=== PATIENT | female | born 1960 | race Caucasian/White ===

== ENCOUNTER → 2017-06-06 | Outpatient (CLI) | payer BC ==
[~2017-06-06] MED LIST: CEPH500 PO; ESTR.75; HORMONE CREAM; HYDACE5 PO; IBUP400; IBUP600 PO; KETO10 PO; LEVFLO500; LEVFLO500 PO; Norco 5-325 Ta1 EACH PO; ONDA4ODT PO; OXYB5ER PO; PHENA200 PO; Percocet 5-3251 EACH PO; Pyridium100 MG PO; ROFE12.5; [UNRECOGNIZED DRUG - REMARK]
== END | disposition home or self-care (01) ==
LOC: LAB 15:30
DX: R35.0 Frequency of micturition (principal)
CPT/HCPCS: 87077; 87086; 87186

== ENCOUNTER → 2019-01-08 | Outpatient (CLI) | payer BC | LOC: LAB SHORT 14:30 → LAB 14:30 | DX: N39.0 Urinary tract infection, site not specified (principal) | CPT/HCPCS: 87077; 87086; 87186 ==

== ENCOUNTER → 2019-03-31 | Outpatient (CLI) | payer BC ==
[~2019-03-31] MED LIST changes: +Invanz1 GM IV; +MUSCLE RELAXER; +ZYLOPRIM300 MG PO; +Zoloft100 MG PO
== END | disposition home or self-care (01) ==
LOC: LAB 13:30 → LAB SHORT 13:30
DX: N39.0 Urinary tract infection, site not specified (principal)
CPT/HCPCS: 87077; 87086; 87186

== ENCOUNTER 2019-04-04 20:06 | Emergency (ER) | payer BC ==
[~2019-04-04] VITALS: Ht 170.2 cm; Wt 106.6 kg
[~2019-04-04 20:06] MED LIST changes: -Invanz1 GM IV; -MUSCLE RELAXER; -ZYLOPRIM300 MG PO; -Zoloft100 MG PO
[2019-04-04] MEDS ORDERED: ZYLOPRIM300 MG PO (20:35)
[2019-04-04 21:50] LABS: Calcium, Ionized (POC) 1.16 mmol/L (1.10-1.46); Chloride (POC) 108 mmol/L (98-108); Creatinine (POC) 0.7 mg/dL (0.6-1.0); Glucose (ISTAT POC) 96 mg/dL (70-99); Potassium (POC) 3.9 mmol/L (3.5-5.5); Sodium (POC) 140 mmol/L (135-148); Total CO2 (POC) 25 mmol/L (21-32)
== END 2019-04-04 23:47 | disposition home or self-care (01) ==
LOC: ER 20:06
DX: R25.2 Cramp and spasm (principal); G47.30 Sleep apnea, unspecified; Z88.8 Allergy status to other drugs, medicaments and biological substances; Z91.048 Other nonmedicinal substance allergy status; Z87.442 Personal history of urinary calculi
CPT/HCPCS: 36415; 80047; 83735; 85014; 85379; 99283

== ENCOUNTER 2019-04-09 16:41 | Emergency (ER) | payer BC ==
[~2019-04-09] VITALS: Ht 170.2 cm; Wt 107.5 kg
[~2019-04-09 16:41] MED LIST changes: +ZYLOPRIM300 MG PO
[2019-04-09 17:32] LABS: Source, Urine Clean Catch
[2019-04-09 17:35] LABS: Bilirubin, Urine Neg (Neg); Blood, Urine Neg (Neg); Glucose Qualitative, Urine Neg (Neg); Ketones, Urine Neg (Neg); Leukocyte Esterase, Urine 3+ (Neg); Nitrite, Urine Neg (Neg); Protein, Urine Neg (Neg); Urobilinogen, Urine NORM (Normal)
[2019-04-09 17:37] LABS: Appearance, Urine Hazy (Clear); Color, Urine Yellow (P-Yellow)
[2019-04-09 17:49] LABS: Bacteria Mod /hpf; Red Blood Cells, Urine 0-2 /hpf (0-2); Squamous Epithelial Cells Mod /hpf (Few)
[2019-04-10] MEDS ORDERED: MUSCLE RELAXER (15:48)
[2019-04-10] MEDS ORDERED: Zoloft100 MG PO (15:48)
== END 2019-04-09 21:35 ==
LOC: ER 16:41
PROVIDERS: Emergency Medicine
DX: N39.0 Urinary tract infection, site not specified (principal); B96.89 Other specified bacterial agents as the cause of diseases classified elsewhere; G47.30 Sleep apnea, unspecified; Z88.8 Allergy status to other drugs, medicaments and biological substances; Z88.1 Allergy status to other antibiotic agents; Z79.899 Other long term (current) drug therapy; Z87.442 Personal history of urinary calculi
CPT/HCPCS: 81001; 87077; 87086; 87186; 96365; 99283-25; J2185

== ENCOUNTER 2019-04-10 15:01 | Day surgery (SDC) | payer BC ==
[2019-04-10] MEDS ORDERED: Zoloft100 MG PO (15:48)
[2019-04-10] MEDS ORDERED: MUSCLE RELAXER (15:48)
[2019-04-11] MEDS ORDERED: Invanz1 GM IV (16:58)
== END 2019-04-10 16:08 | disposition home or self-care (01) ==
LOC: ATC 15:01
DX: N39.0 Urinary tract infection, site not specified (principal); G47.30 Sleep apnea, unspecified; Z87.442 Personal history of urinary calculi; Z16.12 Extended spectrum beta lactamase (ESBL) resistance; Z79.2 Long term (current) use of antibiotics; Z79.899 Other long term (current) drug therapy; Z88.8 Allergy status to other drugs, medicaments and biological substances; Z90.710 Acquired absence of both cervix and uterus
CPT/HCPCS: 96365; J1335

== ENCOUNTER 2019-04-11 15:25 | Day surgery (SDC) | payer BC ==
[~2019-04-11 15:25] MED LIST changes: +MUSCLE RELAXER; +Zoloft100 MG PO
[2019-04-11] MEDS ORDERED: Invanz1 GM IV (16:58)
== END 2019-04-11 16:23 | disposition home or self-care (01) ==
LOC: ATC 15:25
DX: N39.0 Urinary tract infection, site not specified (principal); G47.30 Sleep apnea, unspecified; Z87.442 Personal history of urinary calculi; Z16.12 Extended spectrum beta lactamase (ESBL) resistance; Z79.2 Long term (current) use of antibiotics; Z79.899 Other long term (current) drug therapy; Z88.8 Allergy status to other drugs, medicaments and biological substances; Z90.710 Acquired absence of both cervix and uterus
CPT/HCPCS: 96365; J1335

== ENCOUNTER 2019-04-12 09:24 | Day surgery (SDC) | payer BC ==
[~2019-04-12 09:24] MED LIST changes: +Invanz1 GM IV
== END 2019-04-12 14:27 | disposition home or self-care (01) ==
LOC: ATC 09:24
DX: N39.0 Urinary tract infection, site not specified (principal); G47.30 Sleep apnea, unspecified; Z16.12 Extended spectrum beta lactamase (ESBL) resistance; Z87.442 Personal history of urinary calculi; Z79.2 Long term (current) use of antibiotics; Z79.899 Other long term (current) drug therapy; Z88.8 Allergy status to other drugs, medicaments and biological substances
CPT/HCPCS: 96365; J1335

== ENCOUNTER 2019-04-13 00:01 | Day surgery (SDC) | payer BC | END 2019-04-13 16:01 | disposition home or self-care (01) | LOC: ATC 00:01 | DX: N39.0 Urinary tract infection, site not specified (principal); G47.30 Sleep apnea, unspecified; Z16.12 Extended spectrum beta lactamase (ESBL) resistance; Z87.442 Personal history of urinary calculi; Z79.2 Long term (current) use of antibiotics; Z79.899 Other long term (current) drug therapy; Z88.8 Allergy status to other drugs, medicaments and biological substances | CPT/HCPCS: 96365; J1335 ==

== ENCOUNTER 2019-04-14 11:22 | Day surgery (SDC) | payer BC | END 2019-04-14 11:48 | disposition home or self-care (01) | LOC: ATC 11:22 | DX: N39.0 Urinary tract infection, site not specified (principal); Z88.8 Allergy status to other drugs, medicaments and biological substances | CPT/HCPCS: 96365; J1335 ==

== ENCOUNTER 2019-04-15 08:04 | Day surgery (SDC) | payer BC | END 2019-04-15 15:45 | disposition home or self-care (01) | LOC: ATC 08:04 | DX: N39.0 Urinary tract infection, site not specified (principal); G47.30 Sleep apnea, unspecified; Z16.12 Extended spectrum beta lactamase (ESBL) resistance; Z87.442 Personal history of urinary calculi; Z79.2 Long term (current) use of antibiotics; Z79.899 Other long term (current) drug therapy; Z88.8 Allergy status to other drugs, medicaments and biological substances; Z90.710 Acquired absence of both cervix and uterus | CPT/HCPCS: 96365; J1335 ==

== ENCOUNTER 2019-04-16 02:22 | Day surgery (SDC) | payer BC | END 2019-04-16 15:50 | disposition home or self-care (01) | LOC: ATC 02:22 | DX: N39.0 Urinary tract infection, site not specified (principal); B96.20 Unspecified Escherichia coli [E. coli] as the cause of diseases classified elsewhere; Z88.8 Allergy status to other drugs, medicaments and biological substances | CPT/HCPCS: 96365; J1335 ==

== ENCOUNTER → 2019-04-19 | Outpatient (CLI) | payer BC | END | disposition home or self-care (01) | LOC: LAB SHORT 15:07 → LAB 15:07 | DX: R10.2 Pelvic and perineal pain (principal) | CPT/HCPCS: 87077; 87086; 87186 ==

== ENCOUNTER → 2023-01-06 | Outpatient (CLI) | payer OTHER | LOC: LAB 15:40 → LAB SHORT 15:40 | DX: N39.0 Urinary tract infection, site not specified (principal); R35.0 Frequency of micturition | CPT/HCPCS: 87077; 87086; 87186 ==